=== PATIENT | female | born 1965 | race Caucasian/White ===

== ENCOUNTER 2022-05-08 23:43 | Inpatient (IN) | payer MEDICARE ==
[~2022-05-08] VITALS: Ht 157.5 cm; Wt 124.7 kg
[2022-05-09] VITALS (17 sets, daily range): BP systolic 92–124; BP diastolic 58–86
[2022-05-09 00:04] LABS: HEMATOCRIT 35.5 % (34.2-44.1); HEMOGLOBIN 10.9 g/dL (12.0-16.0); LYMPHOCYTES % 9.8 % (18.0-39.1); MEAN CORPUSCULAR HEMOGLOBIN 27.2 pg (28-32); MEAN CORPUSCULAR HGB CONC 30.7 g/dL (31-35); MEAN CORPUSCULAR VOLUME 88.5 fL (81-99); MONOCYTES % 6.8 % (4.4-11.3); NEUTROPHILS % 81.1 % (38.7-80.0); PLATELET COUNT 398 x10e3/uL (140-360); RED BLOOD COUNT 4.01 x10e6/uL (3.6-5.1); RED CELL DISTRIBUTION WIDTH 20.4 % (11.7-14.4)
[2022-05-09 00:05] LABS: BASOPHILS # (AUTO) 0.1 (0.0-0.1); BASOPHILS % 0.6 % (0.0-1.0); EOSINOPHILS # (AUTO) 0.2 (0.0-0.4); EOSINOPHILS % 1.3 % (0.0-6.0); LYMPHOCYTES # (AUTO) 1.4 (1.0-3.2); NEUTROPHILS # (AUTO) 11.5 (2.1-6.9)
[2022-05-09 00:23] LABS: INFLUENZAE A&B ANTIGEN (RAPID) NEGATIVE (NEGATIVE)
[2022-05-09 00:24] LABS: ALBUMIN/GLOBULIN RATIO 0.4 (0.8-2.0); ANION GAP 17.2 mmol/L (8-16); CALCIUM 8.9 mg/dL (8.4-10.2); CREATININE, SERUM 1.62 mg/dL (0.57-1.11); POTASSIUM 4.2 mmol/L (3.5-5.1); RESPIRATORY SYNC. VIRUS NEGATIVE (NEGATIVE)
[2022-05-09 00:32] LABS: CREATINE KINASE MB 2.8 ng/mL (0-5.0)
[2022-05-09] MEDS ORDERED: SODIUM CHLORIDE 0.9% 500ML 500 ML IV STA (01:24)
[2022-05-09] MEDS ORDERED: IOPAMIDOL 370 MG/ML 100 ML INFUS..BTL INJ ONE (01:35)
[2022-05-09] MEDS ORDERED: HEPARIN SOD (PORCINE) 5,000 UNIT/ML VIAL IV ONE (02:00)
[2022-05-09 02:01] LABS: INR 1.04; PROTHROMBIN TIME 14.5 seconds (11.9-14.5)
[2022-05-09 02:02] LABS: PARTIAL THROMBOPLASTIN TIME 25.7 seconds (23.8-35.5)
[2022-05-09] MEDS ORDERED: HEPARIN 25,000 UNIT DRIP IV ONE (02:44)
[2022-05-09] MEDS: HEPARIN 25,000 UNIT 1,400 UNIT in DEXTROSE 5% 250ML 250 ML IV SCH ×2 (02:49→19:48)
[2022-05-09] MEDS: ONDANSETRON HCL INJ 2MG/ML 2ML 2 MG/ML VIAL IV PRN (04:56)
[2022-05-09] MEDS: Morphine 4mg INJECTION 4 MG/ML INJ IV PRN (04:57)
[2022-05-09] MEDS ORDERED: METOPROLOL SUCC25 MG PO (05:35)
[2022-05-09] MEDS ORDERED: PANTOPRAZOLE SO40 MG PO (05:35)
[2022-05-09] MEDS ORDERED: HYDROXYZINE HCL10 MG PO (05:35)
[2022-05-09] MEDS ORDERED: LORATADINE10 MG PO (05:35)
[2022-05-09] MEDS ORDERED: SENOKOT-S TABL1 EACH PO (05:35)
[2022-05-09] MEDS ORDERED: QUETIAPINE FUMA25 MG PO (05:35)
[2022-05-09] MEDS ORDERED: AMLODIPINE BESY10 MG PO (05:35)
[2022-05-09] MEDS ORDERED: VITAMIN C500 MG PO (05:35)
[2022-05-09] MEDS ORDERED: FLUOXETINE HCL20 MG PO (05:35)
[2022-05-09] MEDS ORDERED: CRESTOR5 MG PO (05:35)
[2022-05-09] MEDS ORDERED: FUROSEMIDE40 MG PO (05:35)
[2022-05-09] MEDS ORDERED: MONTELUKAST SOD10 MG PO (05:35)
[2022-05-09] MEDS ORDERED: FEROSUL325 MG PO (05:35)
[2022-05-09] MEDS ORDERED: ELIQUIS5 MG PO (06:13)
[2022-05-09] MEDS ORDERED: PANTOPRAZOLE SOD 40 MG TABEC PO PRN (09:00)
[2022-05-09 09:40] LABS: CREATINE KINASE MB 3.5 ng/mL (0-5.0)
[2022-05-09] MEDS ORDERED: BENZONATATE 100 MG CAP PO PRN (11:30)
[2022-05-09] MEDS ORDERED: LIDOCAINE 4% PATCH TP PRN (11:30)
[2022-05-09] MEDS ORDERED: DIPHENHYDRAMINE HCL 25 MG CAP PO PRN (11:30)
[2022-05-09] MEDS ORDERED: SIMETHICONE 80 MG CHEW PO PRN (11:30)
[2022-05-09] MEDS ORDERED: DEXTROSE 50% SYRINGE 50 ML IV PRN (11:30)
[2022-05-09] MEDS ORDERED: POTASSIUM CHLORIDE 20 MEQ TAB CR PO PRN (11:30)
[2022-05-09] MEDS ORDERED: DOCUSATE SODIUM 100 MG CAP PO PRN (11:30)
[2022-05-09] MEDS ORDERED: MELATONIN 5 MG TABLET PO PRN (11:30)
[2022-05-09] MEDS ORDERED: HYDRALAZINE HCL 20 MG/ML VIAL IV PRN (11:30)
[2022-05-09] MEDS ORDERED: SODIUM CHLORIDE 0.9% 250ML 250 ML ONE (14:17)
[2022-05-09] MEDS: SENNA-S TABLET PO SCH (14:19)
[2022-05-09] MEDS: MONTELUKAST SODIUM 10 MG TAB PO SCH (14:19)
[2022-05-09] MEDS: ASCORBIC ACID 500 MG TAB PO SCH ×2 (14:19→17:00)
[2022-05-09] MEDS: ALBUTEROL/IPRATROPIUM 3 ML NEB NEB PRN (14:30)
[2022-05-09] MEDS ORDERED: FUROSEMIDE INJ 100 MG in SODIUM CHLORIDE 0.9% 90 ML IV SCH (16:00)
[2022-05-09] MEDS: METOPROLOL SUCCINATE 25 MG TAB XL PO SCH (16:00)
[2022-05-09 17:15] LABS: CREATINE KINASE MB 3.1 ng/mL (0-5.0)
[2022-05-09 18:27] LABS: CLARITY,URINE CLOUDY (CLEAR); COLOR,URINE YELLOW (YELLOW); LEUKOCYTE ESTERASE ,URINE SMALL (NEGATIVE); NITRITE,URINE NEGATIVE (NEGATIVE); PROTEIN,URINE DIPSTICK 2+ (NEGATIVE)
[2022-05-09 18:28] LABS: KETONES,URINE NEGATIVE (NEGATIVE); URINE UROBILINOGEN 0.2 mg/dL (0.2 - 1)
[2022-05-09 18:46] LABS: BACTERIA,URINE MANY /HPF
[2022-05-09 18:52] LABS: CREATININE,URINE RANDOM 91.44 mg/dL (47-110); TOTAL PROTEIN, URINE 134.8 mg/dL (1-14)
[2022-05-09] MEDS ORDERED: SIMVASTATIN 20 MG TAB PO SCH (21:00)
[2022-05-09] MEDS: FUROSEMIDE INJ 100 MG in SODIUM CHLORIDE 0.9% 90 ML IV SCH (22:10)
[2022-05-09] MEDS: CRESTOR 10MG PO SCH (22:11)
[2022-05-09] MEDS: QUETIAPINE FUMARATE 25 MG TAB PO SCH (22:11)
[2022-05-10] VITALS (43 sets, daily range): BP systolic 88–121; BP diastolic 52–77
[2022-05-10] MEDS: FUROSEMIDE INJ 100 MG in SODIUM CHLORIDE 0.9% 90 ML IV SCH ×3 (04:57→21:20)
[2022-05-10 04:58] LABS: BASOPHILS # (AUTO) 0.1 (0.0-0.1); BASOPHILS % 1.1 % (0.0-1.0); EOSINOPHILS # (AUTO) 0.6 (0.0-0.4); EOSINOPHILS % 8.3 % (0.0-6.0); HEMOGLOBIN 9.5 g/dL (12.0-16.0); LYMPHOCYTES # (AUTO) 1.2 (1.0-3.2); LYMPHOCYTES % 16.3 % (18.0-39.1); MEAN CORPUSCULAR HEMOGLOBIN 27.1 pg (28-32); MEAN CORPUSCULAR HGB CONC 29.7 g/dL (31-35); MEAN CORPUSCULAR VOLUME 91.2 fL (81-99); MONOCYTES # (AUTO) 0.6 (0.2-0.8); NEUTROPHILS # (AUTO) 4.9 (2.1-6.9); PLATELET COUNT 293 x10e3/uL (140-360); RED BLOOD COUNT 3.51 x10e6/uL (3.6-5.1); RED CELL DISTRIBUTION WIDTH 20.1 % (11.7-14.4)
[2022-05-10 05:41] LABS: ALBUMIN 1.8 g/dL (3.5-5.0); ALBUMIN/GLOBULIN RATIO 0.5 (0.8-2.0); ALKALINE PHOSPHATASE 70 IU/L (40-150); ANION GAP 16.7 mmol/L (8-16); BLOOD UREA NITROGEN 23 mg/dL (7-26); BUN/CREATININE RATIO 14 (6-25); CALCIUM 8.4 mg/dL (8.4-10.2); CARBON DIOXIDE 19 mmol/L (22-29); CHLORIDE 110 mmol/L (98-107); CREATININE, SERUM 1.66 mg/dL (0.57-1.11); GLUCOSE 88 mg/dL (74-118); POTASSIUM 3.7 mmol/L (3.5-5.1); SODIUM 142 mmol/L (136-145)
[2022-05-10 05:44] LABS: ALANINE AMINOTRANSFERASE < 6 IU/L (0-55)
[2022-05-10 06:01] LABS: FERRITIN 54.87 ng/mL (4.63-204.00)
[2022-05-10] MEDS: PANTOPRAZOLE SOD 40 MG TABEC PO SCH (07:17)
[2022-05-10] MEDS: ACETAMINOPHEN 325 MG TAB PO PRN ×2 (07:20→16:02)
[2022-05-10] MEDS: ALBUTEROL/IPRATROPIUM 3 ML NEB NEB PRN ×2 (08:00→20:10)
[2022-05-10] MEDS: SENNA-S TABLET PO SCH (08:15)
[2022-05-10] MEDS: ASCORBIC ACID 500 MG TAB PO SCH ×2 (08:16→15:52)
[2022-05-10] MEDS: METOPROLOL SUCCINATE 25 MG TAB XL PO SCH (08:16)
[2022-05-10] MEDS: FERROUS SULFATE 325 MG TAB PO SCH (08:16)
[2022-05-10] MEDS: FLUOXETINE HCL 20 MG CAP PO SCH (08:17)
[2022-05-10] MEDS: MONTELUKAST SODIUM 10 MG TAB PO SCH (08:17)
[2022-05-10] MEDS: AMLODIPINE BESYLATE 10 MG TAB PO SCH (08:17)
[2022-05-10] MEDS: LORATADINE 10 MG TAB PO SCH (08:17)
[2022-05-10] MEDS ORDERED: FUROSEMIDE 40 MG TAB PO SCH (09:00)
[2022-05-10] MEDS ORDERED: LIDOCAINE HCL 1% LOCAL INJ 20 ML VIAL ONE (13:48)
[2022-05-10] MEDS: ALLOPURINOL 100 MG TAB PO SCH (15:52)
[2022-05-10] MEDS: HEPARIN 25,000 UNIT 1,400 UNIT in DEXTROSE 5% 250ML 250 ML IV SCH (15:56)
[2022-05-10] MEDS: QUETIAPINE FUMARATE 25 MG TAB PO SCH (20:22)
[2022-05-10] MEDS: CRESTOR 10MG PO SCH (20:22)
[2022-05-11] VITALS (13 sets, daily range): BP systolic 84–111; BP diastolic 50–74
[2022-05-11] MEDS: ACETAMINOPHEN 325 MG TAB PO PRN ×2 (02:23→11:44)
[2022-05-11 05:11] LABS: MAGNESIUM 1.7 MG/DL (1.3-2.1); PHOSPHORUS 3.5 MG/DL (2.3-4.7)
[2022-05-11] MEDS: HEPARIN 25,000 UNIT 1,400 UNIT in DEXTROSE 5% 250ML 250 ML IV SCH ×2 (05:29→15:07)
[2022-05-11] MEDS: FUROSEMIDE INJ 100 MG in SODIUM CHLORIDE 0.9% 90 ML IV SCH (07:30)
[2022-05-11] MEDS: MONTELUKAST SODIUM 10 MG TAB PO SCH (08:13)
[2022-05-11] MEDS: PANTOPRAZOLE SOD 40 MG TABEC PO SCH (08:13)
[2022-05-11] MEDS: ASCORBIC ACID 500 MG TAB PO SCH ×2 (08:13→16:36)
[2022-05-11] MEDS: FOLIC ACID 1 MG TAB PO SCH (08:13)
[2022-05-11] MEDS: FLUOXETINE HCL 20 MG CAP PO SCH (08:13)
[2022-05-11] MEDS: SENNA-S TABLET PO SCH (08:14)
[2022-05-11] MEDS: FERROUS SULFATE 325 MG TAB PO SCH (08:14)
[2022-05-11] MEDS: LORATADINE 10 MG TAB PO SCH (08:14)
[2022-05-11] MEDS: AMLODIPINE BESYLATE 10 MG TAB PO SCH (08:15)
[2022-05-11] MEDS: METOPROLOL SUCCINATE 25 MG TAB XL PO SCH (08:16)
[2022-05-11] MEDS: ALLOPURINOL 100 MG TAB PO SCH (08:16)
[2022-05-11] MEDS: ALBUTEROL/IPRATROPIUM 3 ML NEB NEB PRN ×2 (13:43→19:25)
[2022-05-11] MEDS: HYDROCODONE/APAP 5MG-325MG TAB PO PRN (19:25)
[2022-05-11] MEDS: QUETIAPINE FUMARATE 25 MG TAB PO SCH (21:16)
[2022-05-11] MEDS: CRESTOR 10MG PO SCH (21:16)
[2022-05-12] VITALS (20 sets, daily range): BP systolic 85–116; BP diastolic 54–72
[2022-05-12] MEDS: HYDROCODONE/APAP 5MG-325MG TAB PO PRN ×3 (04:50→22:03)
[2022-05-12 06:48] LABS: BASOPHILS # (AUTO) 0.1 (0.0-0.1); BASOPHILS % 0.8 % (0.0-1.0); EOSINOPHILS # (AUTO) 0.5 (0.0-0.4); EOSINOPHILS % 7.5 % (0.0-6.0); HEMATOCRIT 30.2 % (34.2-44.1); HEMOGLOBIN 9.1 g/dL (12.0-16.0); LYMPHOCYTES # (AUTO) 1.1 (1.0-3.2); LYMPHOCYTES % 14.8 % (18.0-39.1); MEAN CORPUSCULAR HEMOGLOBIN 26.8 pg (28-32); MEAN CORPUSCULAR HGB CONC 30.1 g/dL (31-35); MEAN CORPUSCULAR VOLUME 89.1 fL (81-99); MONOCYTES # (AUTO) 0.5 (0.2-0.8); MONOCYTES % 6.5 % (4.4-11.3); NEUTROPHILS # (AUTO) 5.1 (2.1-6.9); NEUTROPHILS % 70.1 % (38.7-80.0); PLATELET COUNT 298 x10e3/uL (140-360); RED BLOOD COUNT 3.39 x10e6/uL (3.6-5.1); RED CELL DISTRIBUTION WIDTH 19.4 % (11.7-14.4)
[2022-05-12 07:15] LABS: ALBUMIN 1.6 g/dL (3.5-5.0); ALBUMIN/GLOBULIN RATIO 0.4 (0.8-2.0); ALKALINE PHOSPHATASE 67 IU/L (40-150); ANION GAP 17.1 mmol/L (8-16); BLOOD UREA NITROGEN 22 mg/dL (7-26); BUN/CREATININE RATIO 14 (6-25); CARBON DIOXIDE 21 mmol/L (22-29); CHLORIDE 107 mmol/L (98-107); CREATININE, SERUM 1.56 mg/dL (0.57-1.11); GLUCOSE 78 mg/dL (74-118); POTASSIUM 3.1 mmol/L (3.5-5.1); SODIUM 142 mmol/L (136-145)
[2022-05-12 07:16] LABS: ALANINE AMINOTRANSFERASE < 6 IU/L (0-55)
[2022-05-12] MEDS: PANTOPRAZOLE SOD 40 MG TABEC PO SCH (08:35)
[2022-05-12] MEDS: FLUOXETINE HCL 20 MG CAP PO SCH (08:35)
[2022-05-12] MEDS: FERROUS SULFATE 325 MG TAB PO SCH (08:35)
[2022-05-12] MEDS: LORATADINE 10 MG TAB PO SCH (08:36)
[2022-05-12] MEDS: ALLOPURINOL 100 MG TAB PO SCH (08:36)
[2022-05-12] MEDS: SENNA-S TABLET PO SCH (08:36)
[2022-05-12] MEDS: FUROSEMIDE 40 MG TAB PO SCH (08:36)
[2022-05-12] MEDS: AMLODIPINE BESYLATE 10 MG TAB PO SCH (08:36)
[2022-05-12] MEDS: FOLIC ACID 1 MG TAB PO SCH (08:36)
[2022-05-12] MEDS: MONTELUKAST SODIUM 10 MG TAB PO SCH (08:37)
[2022-05-12] MEDS: ASCORBIC ACID 500 MG TAB PO SCH ×2 (08:37→16:19)
[2022-05-12] MEDS: METOPROLOL SUCCINATE 25 MG TAB XL PO SCH (08:38)
[2022-05-12] MEDS ORDERED: POTASSIUM CHLORIDE 20 MEQ TAB CR PO STA (10:18)
[2022-05-12] MEDS ORDERED: POTASSIUM CHLORIDE 20 MEQ TAB CR PO ONE (10:20)
[2022-05-12] MEDS: ALBUTEROL/IPRATROPIUM 3 ML NEB NEB PRN ×2 (12:00→23:00)
[2022-05-12] MEDS: QUETIAPINE FUMARATE 25 MG TAB PO SCH (21:55)
[2022-05-12] MEDS: CRESTOR 10MG PO SCH (21:55)
[2022-05-12] MEDS: ACETAMINOPHEN 325 MG TAB PO PRN (21:56)
[2022-05-12] MEDS: Morphine 4mg INJECTION 4 MG/ML INJ IV PRN (23:05)
[2022-05-12] MEDS: ONDANSETRON HCL INJ 2MG/ML 2ML 2 MG/ML VIAL IV PRN (23:05)
[2022-05-13] VITALS (15 sets, daily range): BP systolic 92–112; BP diastolic 52–74
[2022-05-13] MEDS: HEPARIN 25,000 UNIT 1,400 UNIT in DEXTROSE 5% 250ML 250 ML IV SCH ×2 (02:00→09:26)
[2022-05-13 06:43] LABS: BASOPHILS # (AUTO) 0.1 (0.0-0.1); BASOPHILS % 0.9 % (0.0-1.0); EOSINOPHILS # (AUTO) 0.8 (0.0-0.4); EOSINOPHILS % 9.7 % (0.0-6.0); HEMATOCRIT 32.2 % (34.2-44.1); HEMOGLOBIN 9.7 g/dL (12.0-16.0); LYMPHOCYTES # (AUTO) 1.7 (1.0-3.2); LYMPHOCYTES % 21.2 % (18.0-39.1); MEAN CORPUSCULAR HEMOGLOBIN 26.9 pg (28-32); MEAN CORPUSCULAR HGB CONC 30.1 g/dL (31-35); MEAN CORPUSCULAR VOLUME 89.4 fL (81-99); MONOCYTES # (AUTO) 0.6 (0.2-0.8); MONOCYTES % 8.1 % (4.4-11.3); NEUTROPHILS # (AUTO) 4.8 (2.1-6.9); NEUTROPHILS % 59.7 % (38.7-80.0); PLATELET COUNT 341 x10e3/uL (140-360); RED CELL DISTRIBUTION WIDTH 19.3 % (11.7-14.4)
[2022-05-13 07:15] LABS: ALBUMIN 1.7 g/dL (3.5-5.0); ALBUMIN/GLOBULIN RATIO 0.4 (0.8-2.0); ALKALINE PHOSPHATASE 74 IU/L (40-150); ANION GAP 19.9 mmol/L (8-16); BLOOD UREA NITROGEN 20 mg/dL (7-26); BUN/CREATININE RATIO 14 (6-25); CALCIUM 8.1 mg/dL (8.4-10.2); CARBON DIOXIDE 20 mmol/L (22-29); CHLORIDE 107 mmol/L (98-107); CREATININE, SERUM 1.38 mg/dL (0.57-1.11); GLUCOSE 74 mg/dL (74-118); POTASSIUM 3.9 mmol/L (3.5-5.1); SODIUM 143 mmol/L (136-145)
[2022-05-13 07:16] LABS: ALANINE AMINOTRANSFERASE < 6 IU/L (0-55)
[2022-05-13] MEDS: ASCORBIC ACID 500 MG TAB PO SCH ×2 (08:25→16:03)
[2022-05-13] MEDS: LORATADINE 10 MG TAB PO SCH (08:26)
[2022-05-13] MEDS: PANTOPRAZOLE SOD 40 MG TABEC PO SCH (08:26)
[2022-05-13] MEDS: FLUOXETINE HCL 20 MG CAP PO SCH (08:26)
[2022-05-13] MEDS: FERROUS SULFATE 325 MG TAB PO SCH (08:26)
[2022-05-13] MEDS: FOLIC ACID 1 MG TAB PO SCH (08:26)
[2022-05-13] MEDS: MONTELUKAST SODIUM 10 MG TAB PO SCH (08:26)
[2022-05-13] MEDS: SENNA-S TABLET PO SCH (08:27)
[2022-05-13] MEDS: FUROSEMIDE 40 MG TAB PO SCH (08:27)
[2022-05-13] MEDS: ALLOPURINOL 100 MG TAB PO SCH (08:27)
[2022-05-13] MEDS: METOPROLOL SUCCINATE 25 MG TAB XL PO SCH (08:28)
[2022-05-13] MEDS ORDERED: HEPARIN 25,000 UNIT DRIP IV ONE (09:12)
[2022-05-13] MEDS ORDERED: MAGNESIUM SULF 1GRAM/DEXTROSE 100 ML IV ONE (09:45)
[2022-05-13] MEDS: HYDROCODONE/APAP 5MG-325MG TAB PO PRN ×2 (10:07→16:03)
[2022-05-13] MEDS: ALBUTEROL/IPRATROPIUM 3 ML NEB NEB PRN (18:45)
[2022-05-13] MEDS: QUETIAPINE FUMARATE 25 MG TAB PO SCH (21:36)
[2022-05-13] MEDS: CRESTOR 10MG PO SCH (21:37)
[2022-05-14] VITALS (18 sets, daily range): BP systolic 86–130; BP diastolic 53–92
[2022-05-14 06:28] LABS: BASOPHILS # (AUTO) 0.1 (0.0-0.1); BASOPHILS % 0.7 % (0.0-1.0); EOSINOPHILS # (AUTO) 0.6 (0.0-0.4); EOSINOPHILS % 8.1 % (0.0-6.0); HEMATOCRIT 29.4 % (34.2-44.1); HEMOGLOBIN 9.2 g/dL (12.0-16.0); LYMPHOCYTES # (AUTO) 1.1 (1.0-3.2); LYMPHOCYTES % 14.7 % (18.0-39.1); MEAN CORPUSCULAR HEMOGLOBIN 27.3 pg (28-32); MEAN CORPUSCULAR HGB CONC 31.3 g/dL (31-35); MEAN CORPUSCULAR VOLUME 87.2 fL (81-99); MONOCYTES # (AUTO) 0.5 (0.2-0.8); MONOCYTES % 7.2 % (4.4-11.3); NEUTROPHILS # (AUTO) 4.9 (2.1-6.9); NEUTROPHILS % 68.7 % (38.7-80.0); PLATELET COUNT 313 x10e3/uL (140-360); RED BLOOD COUNT 3.37 x10e6/uL (3.6-5.1); RED CELL DISTRIBUTION WIDTH 19.2 % (11.7-14.4)
[2022-05-14 06:51] LABS: ANION GAP 14.6 mmol/L (8-16); CALCIUM 8.1 mg/dL (8.4-10.2); CREATININE, SERUM 1.29 mg/dL (0.57-1.11); PHOSPHORUS 2.3 MG/DL (2.3-4.7); POTASSIUM 3.6 mmol/L (3.5-5.1)
[2022-05-14] MEDS: SENNA-S TABLET PO SCH ×2 (09:00→19:59)
[2022-05-14] MEDS: FLUOXETINE HCL 20 MG CAP PO SCH (10:22)
[2022-05-14] MEDS: FUROSEMIDE 40 MG TAB PO SCH ×2 (10:23→16:49)
[2022-05-14] MEDS: METOPROLOL SUCCINATE 25 MG TAB XL PO SCH (10:27)
[2022-05-14] MEDS: ALLOPURINOL 100 MG TAB PO SCH (10:28)
[2022-05-14] MEDS: ASCORBIC ACID 500 MG TAB PO SCH ×2 (10:28→16:49)
[2022-05-14] MEDS: MONTELUKAST SODIUM 10 MG TAB PO SCH (10:28)
[2022-05-14] MEDS: FERROUS SULFATE 325 MG TAB PO SCH (10:28)
[2022-05-14] MEDS: LORATADINE 10 MG TAB PO SCH (10:28)
[2022-05-14] MEDS: HYDROCODONE/APAP 5MG-325MG TAB PO PRN ×2 (10:28→20:04)
[2022-05-14] MEDS: FOLIC ACID 1 MG TAB PO SCH (10:28)
[2022-05-14] MEDS: PANTOPRAZOLE SOD 40 MG TABEC PO SCH (10:29)
[2022-05-14] MEDS: HEPARIN 25,000 UNIT 1,400 UNIT in DEXTROSE 5% 250ML 250 ML IV SCH (12:41)
[2022-05-14] MEDS: QUETIAPINE FUMARATE 25 MG TAB PO SCH (19:58)
[2022-05-14] MEDS: CRESTOR 10MG PO SCH (19:58)
[2022-05-14] MEDS: ALBUTEROL/IPRATROPIUM 3 ML NEB NEB PRN (21:28)
[2022-05-14] MEDS: HYDROXYZINE HCL 25 MG TAB PO PRN (22:49)
[2022-05-15] VITALS (12 sets, daily range): BP systolic 94–134; BP diastolic 54–74
[2022-05-15] MEDS: HEPARIN 25,000 UNIT 1,400 UNIT in DEXTROSE 5% 250ML 250 ML IV SCH ×2 (03:56→19:04)
[2022-05-15] MEDS ORDERED: HEPARIN 25,000 UNIT DRIP IV ONE (04:04)
[2022-05-15 06:42] LABS: ALBUMIN 1.6 g/dL (3.5-5.0); ALBUMIN/GLOBULIN RATIO 0.4 (0.8-2.0); ALKALINE PHOSPHATASE 80 IU/L (40-150); ANION GAP 13.6 mmol/L (8-16); BLOOD UREA NITROGEN 18 mg/dL (7-26); BUN/CREATININE RATIO 15 (6-25); CALCIUM 7.9 mg/dL (8.4-10.2); CARBON DIOXIDE 23 mmol/L (22-29); CHLORIDE 108 mmol/L (98-107); CREATININE, SERUM 1.24 mg/dL (0.57-1.11); GLUCOSE 76 mg/dL (74-118); POTASSIUM 3.6 mmol/L (3.5-5.1); SODIUM 141 mmol/L (136-145)
[2022-05-15 06:46] LABS: ALANINE AMINOTRANSFERASE < 6 IU/L (0-55)
[2022-05-15 08:39] LABS: BASOPHILS % 0.5 % (0.0-1.0); EOSINOPHILS # (AUTO) 0.7 (0.0-0.4); EOSINOPHILS % 8.9 % (0.0-6.0); HEMATOCRIT 30.2 % (34.2-44.1); HEMOGLOBIN 8.9 g/dL (12.0-16.0); LYMPHOCYTES # (AUTO) 1.3 (1.0-3.2); LYMPHOCYTES % 17.6 % (18.0-39.1); MEAN CORPUSCULAR HEMOGLOBIN 26.6 pg (28-32); MEAN CORPUSCULAR HGB CONC 29.5 g/dL (31-35); MEAN CORPUSCULAR VOLUME 90.4 fL (81-99); MONOCYTES # (AUTO) 0.5 (0.2-0.8); MONOCYTES % 6.9 % (4.4-11.3); NEUTROPHILS # (AUTO) 4.9 (2.1-6.9); NEUTROPHILS % 65.8 % (38.7-80.0); PLATELET COUNT 358 x10e3/uL (140-360); RED BLOOD COUNT 3.34 x10e6/uL (3.6-5.1); RED CELL DISTRIBUTION WIDTH 18.8 % (11.7-14.4)
[2022-05-15] MEDS: PANTOPRAZOLE SOD 40 MG TABEC PO SCH (10:39)
[2022-05-15] MEDS: HYDROCODONE/APAP 5MG-325MG TAB PO PRN ×2 (10:39→16:46)
[2022-05-15] MEDS: FOLIC ACID 1 MG TAB PO SCH (10:40)
[2022-05-15] MEDS: FLUOXETINE HCL 20 MG CAP PO SCH (10:40)
[2022-05-15] MEDS: FERROUS SULFATE 325 MG TAB PO SCH (10:40)
[2022-05-15] MEDS: ALLOPURINOL 100 MG TAB PO SCH (10:40)
[2022-05-15] MEDS: FUROSEMIDE 40 MG TAB PO SCH ×3 (10:40→23:18)
[2022-05-15] MEDS: LORATADINE 10 MG TAB PO SCH (10:40)
[2022-05-15] MEDS: ASCORBIC ACID 500 MG TAB PO SCH ×2 (10:40→16:46)
[2022-05-15] MEDS: METOPROLOL SUCCINATE 25 MG TAB XL PO SCH (10:43)
[2022-05-15] MEDS ORDERED: HYDROMORPHONE 1MG/1ML INJ IV ONE (13:15)
[2022-05-15] MEDS ORDERED: EPOETIN ALFA-EPBX 10,000 UNIT/ML VIAL SC ONE (14:00)
[2022-05-15] MEDS: ALBUTEROL/IPRATROPIUM 3 ML NEB NEB PRN (19:35)
[2022-05-15] MEDS: MONTELUKAST SODIUM 10 MG TAB PO SCH (20:14)
[2022-05-15] MEDS: CRESTOR 10MG PO SCH (20:14)
[2022-05-15] MEDS: QUETIAPINE FUMARATE 25 MG TAB PO SCH (20:14)
[2022-05-15] MEDS: SENNA-S TABLET PO SCH (21:00)
[2022-05-16] VITALS (12 sets, daily range): BP systolic 105–135; BP diastolic 58–76
[2022-05-16] MEDS: FUROSEMIDE 40 MG TAB PO SCH ×3 (06:00→22:50)
[2022-05-16 06:21] LABS: BASOPHILS # (AUTO) 0.1 (0.0-0.1); BASOPHILS % 0.9 % (0.0-1.0); EOSINOPHILS # (AUTO) 0.6 (0.0-0.4); EOSINOPHILS % 8.3 % (0.0-6.0); HEMATOCRIT 30.3 % (34.2-44.1); HEMOGLOBIN 8.9 g/dL (12.0-16.0); LYMPHOCYTES % 14.7 % (18.0-39.1); MEAN CORPUSCULAR HEMOGLOBIN 26.4 pg (28-32); MEAN CORPUSCULAR HGB CONC 29.4 g/dL (31-35); MEAN CORPUSCULAR VOLUME 89.9 fL (81-99); MONOCYTES # (AUTO) 0.5 (0.2-0.8); MONOCYTES % 7.1 % (4.4-11.3); NEUTROPHILS # (AUTO) 4.8 (2.1-6.9); NEUTROPHILS % 68.7 % (38.7-80.0); PLATELET COUNT 340 x10e3/uL (140-360); RED BLOOD COUNT 3.37 x10e6/uL (3.6-5.1)
[2022-05-16 06:53] LABS: CALCIUM 7.9 mg/dL (8.4-10.2); CREATININE, SERUM 1.15 mg/dL (0.57-1.11)
[2022-05-16] MEDS: METOPROLOL SUCCINATE 25 MG TAB XL PO SCH (08:53)
[2022-05-16] MEDS: FLUOXETINE HCL 20 MG CAP PO SCH (08:54)
[2022-05-16] MEDS: LORATADINE 10 MG TAB PO SCH (08:54)
[2022-05-16] MEDS: FERROUS SULFATE 325 MG TAB PO SCH (08:54)
[2022-05-16] MEDS: FOLIC ACID 1 MG TAB PO SCH (08:54)
[2022-05-16] MEDS: PANTOPRAZOLE SOD 40 MG TABEC PO SCH (08:54)
[2022-05-16] MEDS: ALLOPURINOL 100 MG TAB PO SCH (08:54)
[2022-05-16] MEDS: ASCORBIC ACID 500 MG TAB PO SCH ×2 (09:09→16:31)
[2022-05-16] MEDS: HYDROCODONE/APAP 5MG-325MG TAB PO PRN ×2 (09:10→21:04)
[2022-05-16] MEDS ORDERED: HEPARIN 25,000 UNIT 1,400 UNIT in DEXTROSE 5% 250ML 250 ML IV SCH ×4 (09:15)
[2022-05-16] MEDS ORDERED: HYDROMORPHONE 1MG/1ML INJ IV ONE (10:15)
[2022-05-16] MEDS: APIXABAN 5 MG TABLET PO SCH (16:31)
[2022-05-16] MEDS: ALBUTEROL/IPRATROPIUM 3 ML NEB NEB PRN (19:30)
[2022-05-16] MEDS: SENNA-S TABLET PO SCH (21:00)
[2022-05-16] MEDS: CRESTOR 10MG PO SCH (21:04)
[2022-05-16] MEDS: MONTELUKAST SODIUM 10 MG TAB PO SCH (21:04)
[2022-05-16] MEDS: QUETIAPINE FUMARATE 25 MG TAB PO SCH (21:04)
[2022-05-16] MEDS ORDERED: SODIUM CHLORIDE 0.9% 250ML 250 ML ONE (23:00)
[2022-05-17] VITALS (12 sets, daily range): BP systolic 106–134; BP diastolic 65–80
[2022-05-17] MEDS: FUROSEMIDE 40 MG TAB PO SCH ×3 (05:48→21:02)
[2022-05-17] MEDS: HYDROCODONE/APAP 5MG-325MG TAB PO PRN ×2 (05:49→19:51)
[2022-05-17] MEDS: LORATADINE 10 MG TAB PO SCH (08:33)
[2022-05-17] MEDS: PANTOPRAZOLE SOD 40 MG TABEC PO SCH (08:33)
[2022-05-17] MEDS: FERROUS SULFATE 325 MG TAB PO SCH (08:34)
[2022-05-17] MEDS: FOLIC ACID 1 MG TAB PO SCH (08:34)
[2022-05-17] MEDS: APIXABAN 5 MG TABLET PO SCH ×2 (08:34→15:22)
[2022-05-17] MEDS: ALLOPURINOL 100 MG TAB PO SCH (08:34)
[2022-05-17] MEDS: ASCORBIC ACID 500 MG TAB PO SCH ×2 (08:34→15:21)
[2022-05-17] MEDS: FLUOXETINE HCL 20 MG CAP PO SCH (08:34)
[2022-05-17] MEDS: METOPROLOL SUCCINATE 25 MG TAB XL PO SCH (08:41)
[2022-05-17] MEDS ORDERED: ONDANSETRON HCL 4 MG ORAL DISINTEGRATING TAB PO PRN (10:15)
[2022-05-17 11:06] LABS: HEMATOCRIT 33.1 % (34.2-44.1); HEMOGLOBIN 9.7 g/dL (12.0-16.0)
[2022-05-17] MEDS: SENNA-S TABLET PO SCH (21:00)
[2022-05-17] MEDS: QUETIAPINE FUMARATE 25 MG TAB PO SCH (21:01)
[2022-05-17] MEDS: CRESTOR 10MG PO SCH (21:01)
[2022-05-17] MEDS: MONTELUKAST SODIUM 10 MG TAB PO SCH (21:01)
[2022-05-18] VITALS (7 sets, daily range): BP systolic 109–126; BP diastolic 64–78
[2022-05-18] MEDS: FUROSEMIDE 40 MG TAB PO SCH ×3 (05:54→20:50)
[2022-05-18 06:05] LABS: BASOPHILS # (AUTO) 0.1 (0.0-0.1); BASOPHILS % 1.1 % (0.0-1.0); EOSINOPHILS # (AUTO) 0.6 (0.0-0.4); EOSINOPHILS % 7.3 % (0.0-6.0); HEMOGLOBIN 9.5 g/dL (12.0-16.0); LYMPHOCYTES # (AUTO) 1.6 (1.0-3.2); LYMPHOCYTES % 18.3 % (18.0-39.1); MEAN CORPUSCULAR HEMOGLOBIN 26.5 pg (28-32); MEAN CORPUSCULAR HGB CONC 30.6 g/dL (31-35); MEAN CORPUSCULAR VOLUME 86.4 fL (81-99); MONOCYTES # (AUTO) 0.6 (0.2-0.8); MONOCYTES % 7.3 % (4.4-11.3); NEUTROPHILS # (AUTO) 5.6 (2.1-6.9); NEUTROPHILS % 65.5 % (38.7-80.0); PLATELET COUNT 429 x10e3/uL (140-360); RED BLOOD COUNT 3.59 x10e6/uL (3.6-5.1); RED CELL DISTRIBUTION WIDTH 18.9 % (11.7-14.4)
[2022-05-18] MEDS: PANTOPRAZOLE SOD 40 MG TABEC PO SCH (09:37)
[2022-05-18] MEDS: LORATADINE 10 MG TAB PO SCH (09:38)
[2022-05-18] MEDS: APIXABAN 5 MG TABLET PO SCH ×2 (09:39→17:07)
[2022-05-18] MEDS: FERROUS SULFATE 325 MG TAB PO SCH (09:39)
[2022-05-18] MEDS: FOLIC ACID 1 MG TAB PO SCH (09:40)
[2022-05-18] MEDS: FLUOXETINE HCL 20 MG CAP PO SCH (09:41)
[2022-05-18] MEDS: ASCORBIC ACID 500 MG TAB PO SCH ×2 (09:42→17:07)
[2022-05-18] MEDS: METOPROLOL SUCCINATE 25 MG TAB XL PO SCH (09:42)
[2022-05-18] MEDS: ALLOPURINOL 100 MG TAB PO SCH (09:42)
[2022-05-18] MEDS: HYDROCODONE/APAP 5MG-325MG TAB PO PRN (12:48)
[2022-05-18] MEDS: MONTELUKAST SODIUM 10 MG TAB PO SCH (20:50)
[2022-05-18] MEDS: SENNA-S TABLET PO SCH (20:50)
[2022-05-18] MEDS: QUETIAPINE FUMARATE 25 MG TAB PO SCH (20:50)
[2022-05-18] MEDS: CRESTOR 10MG PO SCH (20:50)
[2022-05-19] VITALS (9 sets, daily range): BP systolic 102–134; BP diastolic 63–73
[2022-05-19] MEDS: FUROSEMIDE 40 MG TAB PO SCH ×3 (06:00→22:37)
[2022-05-19 07:25] LABS: ANION GAP 14.7 mmol/L (8-16); CALCIUM 8.3 mg/dL (8.4-10.2); CREATININE, SERUM 1.5 mg/dL (0.57-1.11); POTASSIUM 3.7 mmol/L (3.5-5.1)
[2022-05-19] MEDS: ASCORBIC ACID 500 MG TAB PO SCH ×2 (09:11→17:34)
[2022-05-19] MEDS: FLUOXETINE HCL 20 MG CAP PO SCH (09:11)
[2022-05-19] MEDS: FERROUS SULFATE 325 MG TAB PO SCH (09:11)
[2022-05-19] MEDS: LORATADINE 10 MG TAB PO SCH (09:11)
[2022-05-19] MEDS: FOLIC ACID 1 MG TAB PO SCH (09:11)
[2022-05-19] MEDS: ALLOPURINOL 100 MG TAB PO SCH (09:11)
[2022-05-19] MEDS: APIXABAN 5 MG TABLET PO SCH ×2 (09:12→17:34)
[2022-05-19] MEDS: PANTOPRAZOLE SOD 40 MG TABEC PO SCH (09:12)
[2022-05-19] MEDS: METOPROLOL SUCCINATE 25 MG TAB XL PO SCH (09:13)
[2022-05-19] MEDS: HYDROCODONE/APAP 5MG-325MG TAB PO PRN ×2 (11:19→22:49)
[2022-05-19] MEDS ORDERED: OXYMETAZOLINE HCL 0.05% NAS 1 SPRAY BTL PRN (18:30)
[2022-05-19] MEDS: SENNA-S TABLET PO SCH (21:00)
[2022-05-19] MEDS: MONTELUKAST SODIUM 10 MG TAB PO SCH (22:36)
[2022-05-19] MEDS: QUETIAPINE FUMARATE 25 MG TAB PO SCH (22:36)
[2022-05-19] MEDS: CRESTOR 10MG PO SCH (22:36)
[2022-05-20] VITALS (8 sets, daily range): BP systolic 101–123; BP diastolic 61–76
[2022-05-20 06:35] LABS: HEMATOCRIT 30.7 % (34.2-44.1); HEMOGLOBIN 9.3 g/dL (12.0-16.0)
[2022-05-20 06:46] LABS: ANION GAP 14.5 mmol/L (8-16); CALCIUM 8.3 mg/dL (8.4-10.2); CREATININE, SERUM 1.59 mg/dL (0.57-1.11); POTASSIUM 3.5 mmol/L (3.5-5.1)
[2022-05-20] MEDS: FUROSEMIDE 40 MG TAB PO SCH ×3 (06:48→21:15)
[2022-05-20] MEDS: PANTOPRAZOLE SOD 40 MG TABEC PO SCH (09:15)
[2022-05-20] MEDS: ASCORBIC ACID 500 MG TAB PO SCH ×2 (09:16→17:03)
[2022-05-20] MEDS: FLUOXETINE HCL 20 MG CAP PO SCH (09:16)
[2022-05-20] MEDS: ALLOPURINOL 100 MG TAB PO SCH (09:16)
[2022-05-20] MEDS: FERROUS SULFATE 325 MG TAB PO SCH (09:16)
[2022-05-20] MEDS: APIXABAN 5 MG TABLET PO SCH ×2 (09:16→17:03)
[2022-05-20] MEDS: FOLIC ACID 1 MG TAB PO SCH (09:16)
[2022-05-20] MEDS: LORATADINE 10 MG TAB PO SCH (09:16)
[2022-05-20] MEDS: METOPROLOL SUCCINATE 25 MG TAB XL PO SCH (09:17)
[2022-05-20] MEDS: HYDROCODONE/APAP 5MG-325MG TAB PO PRN ×2 (09:53→21:21)
[2022-05-20] MEDS: SENNA-S TABLET PO SCH (21:15)
[2022-05-20] MEDS: QUETIAPINE FUMARATE 25 MG TAB PO SCH (21:15)
[2022-05-20] MEDS: MONTELUKAST SODIUM 10 MG TAB PO SCH (21:15)
[2022-05-20] MEDS: CRESTOR 10MG PO SCH (21:15)
[2022-05-21] VITALS (7 sets, daily range): BP systolic 96–127; BP diastolic 56–77
[2022-05-21] MEDS: FUROSEMIDE 40 MG TAB PO SCH ×3 (06:00→22:05)
[2022-05-21 06:18] LABS: HEMATOCRIT 32.3 % (34.2-44.1); HEMOGLOBIN 9.4 g/dL (12.0-16.0)
[2022-05-21 06:52] LABS: ANION GAP 14.7 mmol/L (8-16); CALCIUM 8.4 mg/dL (8.4-10.2); CREATININE, SERUM 1.48 mg/dL (0.57-1.11); POTASSIUM 3.7 mmol/L (3.5-5.1)
[2022-05-21] MEDS: ASCORBIC ACID 500 MG TAB PO SCH ×2 (08:31→17:00)
[2022-05-21] MEDS: LORATADINE 10 MG TAB PO SCH (08:31)
[2022-05-21] MEDS: FLUOXETINE HCL 20 MG CAP PO SCH (08:31)
[2022-05-21] MEDS: FERROUS SULFATE 325 MG TAB PO SCH (08:31)
[2022-05-21] MEDS: METOPROLOL SUCCINATE 25 MG TAB XL PO SCH (08:31)
[2022-05-21] MEDS: ALLOPURINOL 100 MG TAB PO SCH (08:31)
[2022-05-21] MEDS: PANTOPRAZOLE SOD 40 MG TABEC PO SCH (08:31)
[2022-05-21] MEDS: FOLIC ACID 1 MG TAB PO SCH (08:31)
[2022-05-21] MEDS: APIXABAN 5 MG TABLET PO SCH (08:31)
[2022-05-21] MEDS: HYDROCODONE/APAP 5MG-325MG TAB PO PRN ×2 (14:49→22:26)
[2022-05-21] MEDS: QUETIAPINE FUMARATE 25 MG TAB PO SCH (22:06)
[2022-05-21] MEDS: MONTELUKAST SODIUM 10 MG TAB PO SCH (22:06)
[2022-05-21] MEDS: SENNA-S TABLET PO SCH (22:29)
[2022-05-21] MEDS: CRESTOR 10MG PO SCH (22:29)
[2022-05-21] MEDS: ENOXAPARIN SOD INJ 120 MG/0.8 ML SYR SC SCH (22:29)
[2022-05-22] VITALS (8 sets, daily range): BP systolic 95–117; BP diastolic 54–66
[2022-05-22] MEDS: FUROSEMIDE 40 MG TAB PO SCH ×3 (06:00→21:24)
[2022-05-22] MEDS: PANTOPRAZOLE SOD 40 MG TABEC PO SCH (07:55)
[2022-05-22] MEDS: FERROUS SULFATE 325 MG TAB PO SCH (08:00)
[2022-05-22] MEDS: METOPROLOL SUCCINATE 25 MG TAB XL PO SCH (08:00)
[2022-05-22] MEDS: FLUOXETINE HCL 20 MG CAP PO SCH (08:00)
[2022-05-22] MEDS: ALLOPURINOL 100 MG TAB PO SCH (08:00)
[2022-05-22] MEDS: ASCORBIC ACID 500 MG TAB PO SCH ×2 (08:00→16:49)
[2022-05-22] MEDS: FOLIC ACID 1 MG TAB PO SCH (08:00)
[2022-05-22] MEDS: LORATADINE 10 MG TAB PO SCH (08:00)
[2022-05-22 08:05] LABS: BASOPHILS # (AUTO) 0.1 (0.0-0.1); BASOPHILS % 1.2 % (0.0-1.0); EOSINOPHILS # (AUTO) 0.8 (0.0-0.4); EOSINOPHILS % 9.5 % (0.0-6.0); HEMOGLOBIN 8.8 g/dL (12.0-16.0); LYMPHOCYTES # (AUTO) 1.5 (1.0-3.2); LYMPHOCYTES % 17.7 % (18.0-39.1); MEAN CORPUSCULAR HEMOGLOBIN 26.6 pg (28-32); MEAN CORPUSCULAR HGB CONC 29.3 g/dL (31-35); MEAN CORPUSCULAR VOLUME 90.6 fL (81-99); MONOCYTES # (AUTO) 0.6 (0.2-0.8); MONOCYTES % 6.7 % (4.4-11.3); NEUTROPHILS # (AUTO) 5.3 (2.1-6.9); NEUTROPHILS % 64.4 % (38.7-80.0); PLATELET COUNT 463 x10e3/uL (140-360); RED BLOOD COUNT 3.31 x10e6/uL (3.6-5.1)
[2022-05-22] MEDS: ENOXAPARIN SOD INJ 120 MG/0.8 ML SYR SC SCH (08:54)
[2022-05-22 09:36] LABS: ANISOCYTOSIS MODERATE; HYPOCHROMASIA SLIGHT; PLATELET ESTIMATE ADEQUATE; PLATELET MORPHOLOGY COMMENT NORMAL; RBC MORPHOLOGY COMMENT ABNORMAL
[2022-05-22] MEDS: HYDROCODONE/APAP 5MG-325MG TAB PO PRN ×2 (11:35→20:13)
[2022-05-22] MEDS: MONTELUKAST SODIUM 10 MG TAB PO SCH (20:02)
[2022-05-22] MEDS: CRESTOR 10MG PO SCH (20:02)
[2022-05-22] MEDS: SENNA-S TABLET PO SCH ×2 (20:02→20:05)
[2022-05-22] MEDS: QUETIAPINE FUMARATE 25 MG TAB PO SCH (20:03)
[2022-05-23] VITALS (8 sets, daily range): BP systolic 92–123; BP diastolic 57–68
[2022-05-23] MEDS: FUROSEMIDE 40 MG TAB PO SCH ×3 (05:32→21:09)
[2022-05-23] MEDS: FERROUS SULFATE 325 MG TAB PO SCH (09:53)
[2022-05-23] MEDS: PANTOPRAZOLE SOD 40 MG TABEC PO SCH (09:53)
[2022-05-23] MEDS: ASCORBIC ACID 500 MG TAB PO SCH ×2 (09:54→17:32)
[2022-05-23] MEDS: FLUOXETINE HCL 20 MG CAP PO SCH (09:54)
[2022-05-23] MEDS: ALLOPURINOL 100 MG TAB PO SCH (09:54)
[2022-05-23] MEDS: FOLIC ACID 1 MG TAB PO SCH (09:55)
[2022-05-23] MEDS: LORATADINE 10 MG TAB PO SCH (09:56)
[2022-05-23] MEDS: METOPROLOL SUCCINATE 25 MG TAB XL PO SCH (12:01)
[2022-05-23] MEDS: HYDROCODONE/APAP 5MG-325MG TAB PO PRN ×2 (13:42→21:38)
[2022-05-23] MEDS ORDERED: APIXABAN 5 MG TABLET PO SCH (17:00)
[2022-05-23 17:01] LABS: INR 1.08; PARTIAL THROMBOPLASTIN TIME 30.4 seconds (23.8-35.5)
[2022-05-23] MEDS: SENNA-S TABLET PO SCH (21:00)
[2022-05-23] MEDS: MONTELUKAST SODIUM 10 MG TAB PO SCH (21:38)
[2022-05-23] MEDS: QUETIAPINE FUMARATE 25 MG TAB PO SCH (21:38)
[2022-05-23] MEDS: CRESTOR 10MG PO SCH (21:38)
[2022-05-24] VITALS: BP 107/67
[2022-05-24 04:00] VITALS: BP 111/62
[2022-05-24] MEDS: FUROSEMIDE 40 MG TAB PO SCH ×3 (06:00→15:21)
[2022-05-24 06:24] LABS: BASOPHILS # (AUTO) 0.1 (0.0-0.1); BASOPHILS % 0.6 % (0.0-1.0); EOSINOPHILS # (AUTO) 0.5 (0.0-0.4); EOSINOPHILS % 6.1 % (0.0-6.0); HEMATOCRIT 29.5 % (34.2-44.1); HEMOGLOBIN 8.6 g/dL (12.0-16.0); LYMPHOCYTES # (AUTO) 1.5 (1.0-3.2); LYMPHOCYTES % 18.3 % (18.0-39.1); MEAN CORPUSCULAR HEMOGLOBIN 26.5 pg (28-32); MEAN CORPUSCULAR HGB CONC 29.2 g/dL (31-35); MEAN CORPUSCULAR VOLUME 90.8 fL (81-99); MONOCYTES # (AUTO) 0.6 (0.2-0.8); MONOCYTES % 7.1 % (4.4-11.3); NEUTROPHILS # (AUTO) 5.7 (2.1-6.9); NEUTROPHILS % 67.7 % (38.7-80.0); PLATELET COUNT 427 x10e3/uL (140-360); RED BLOOD COUNT 3.25 x10e6/uL (3.6-5.1); RED CELL DISTRIBUTION WIDTH 19.2 % (11.7-14.4)
[2022-05-24 06:28] LABS: ALBUMIN 1.9 g/dL (3.5-5.0); ALBUMIN/GLOBULIN RATIO 0.5 (0.8-2.0); ALKALINE PHOSPHATASE 66 IU/L (40-150); ANION GAP 18.7 mmol/L (8-16); BLOOD UREA NITROGEN 27 mg/dL (7-26); BUN/CREATININE RATIO 21 (6-25); CARBON DIOXIDE 17 mmol/L (22-29); CHLORIDE 110 mmol/L (98-107); CREATININE, SERUM 1.29 mg/dL (0.57-1.11); GLUCOSE 83 mg/dL (74-118); POTASSIUM 3.7 mmol/L (3.5-5.1); SODIUM 142 mmol/L (136-145)
[2022-05-24 06:30] LABS: ALANINE AMINOTRANSFERASE < 6 IU/L (0-55)
[2022-05-24] MEDS: PANTOPRAZOLE SOD 40 MG TABEC PO SCH (07:30)
[2022-05-24 07:56] VITALS: BP 113/67
[2022-05-24 08:33] LABS: ANISOCYTOSIS MODERATE; PLATELET ESTIMATE ADEQUATE; PLATELET MORPHOLOGY COMMENT NORMAL; RBC MORPHOLOGY COMMENT ABNORMAL
[2022-05-24 08:34] LABS: HYPOCHROMASIA SLIGHT
[2022-05-24] MEDS: ASCORBIC ACID 500 MG TAB PO SCH (09:00)
[2022-05-24] MEDS: METOPROLOL SUCCINATE 25 MG TAB XL PO SCH (09:00)
[2022-05-24 11:30] VITALS: BP 109/71
[2022-05-24] MEDS: LORATADINE 10 MG TAB PO SCH (13:16)
[2022-05-24] MEDS: HYDROXYZINE HCL 25 MG TAB PO PRN (13:16)
[2022-05-24] MEDS: FERROUS SULFATE 325 MG TAB PO SCH (13:16)
[2022-05-24] MEDS: FLUOXETINE HCL 20 MG CAP PO SCH (13:17)
[2022-05-24] MEDS: ALLOPURINOL 100 MG TAB PO SCH (13:17)
[2022-05-24] MEDS: FOLIC ACID 1 MG TAB PO SCH (13:17)
[2022-05-24 16:19] VITALS: BP 135/74
[2022-05-24] MEDS ORDERED: SODIUM BICARBONATE 650 MG TAB PO SCH (17:00)
[2022-05-24] MEDS ORDERED: ENOXAPARIN SOD INJ 120 MG/0.8 ML SYR SC SCH (21:00)
== END 2022-05-24 17:50 | disposition home or self-care (01) | DRG 175 ==
LOC: ER 23:52 → ERHOLD 05-09 01:52 → MED/SURG 05-09 03:31 → ICU 05-09 20:45 → MED/SURG 05-16 20:35 → MED/SURG3 05-18 14:32
PROVIDERS: ADMIT Internal Medicine; ATTEND Internal Medicine
PROC: 5A0935A Assistance with Respiratory Ventilation, Less than 24 Consecutive Hours, High Flow/Velocity Cannula (ICD-10-PCS; 2022-05-09)
PROC: 02HV33Z Insertion of Infusion Device into Superior Vena Cava, Percutaneous Approach (ICD-10-PCS; principal; 2022-05-10)
PROC: 02H633Z Insertion of Infusion Device into Right Atrium, Percutaneous Approach (ICD-10-PCS; 2022-05-10)
DX: I26.99 Other pulmonary embolism without acute cor pulmonale (principal); I50.33 Acute on chronic diastolic (congestive) heart failure; J69.0 Pneumonitis due to inhalation of food and vomit; J96.01 Acute respiratory failure with hypoxia; N17.9 Acute kidney failure, unspecified; I69.954 Hemiplegia and hemiparesis following unspecified cerebrovascular disease affecting left non-dominant side; Z68.43 Body mass index [BMI] 50.0-59.9, adult; T86.99 Other complications of unspecified transplanted organ and tissue; L03.116 Cellulitis of left lower limb; L03.115 Cellulitis of right lower limb; N13.6 Pyonephrosis; E87.3 Alkalosis; C85.18 Unspecified B-cell lymphoma, lymph nodes of multiple sites; D68.9 Coagulation defect, unspecified; I13.0 Hypertensive heart and chronic kidney disease with heart failure and stage 1 through stage 4 chronic kidney disease, or unspecified chronic kidney disease; F32.A Depression, unspecified; E78.5 Hyperlipidemia, unspecified; Z86.711 Personal history of pulmonary embolism; Z79.01 Long term (current) use of anticoagulants; E78.00 Pure hypercholesterolemia, unspecified; E66.01 Morbid (severe) obesity due to excess calories; Z88.6 Allergy status to analgesic agent; E11.69 Type 2 diabetes mellitus with other specified complication; Z20.822 Contact with and (suspected) exposure to COVID-19; D50.9 Iron deficiency anemia, unspecified; R62.7 Adult failure to thrive; R31.9 Hematuria, unspecified; B96.20 Unspecified Escherichia coli [E. coli] as the cause of diseases classified elsewhere; E87.6 Hypokalemia; E83.42 Hypomagnesemia; T50.1X5A Adverse effect of loop [high-ceiling] diuretics, initial encounter; D07.0 Carcinoma in situ of endometrium; R16.0 Hepatomegaly, not elsewhere classified; N28.1 Cyst of kidney, acquired; R91.8 Other nonspecific abnormal finding of lung field; D63.8 Anemia in other chronic diseases classified elsewhere; K21.9 Gastro-esophageal reflux disease without esophagitis; D75.839 Thrombocytosis, unspecified; R04.0 Epistaxis; Z53.29 Procedure and treatment not carried out because of patient's decision for other reasons; N13.9 Obstructive and reflux uropathy, unspecified; Z98.2 Presence of cerebrospinal fluid drainage device; N18.30 Chronic kidney disease, stage 3 unspecified; I48.91 Unspecified atrial fibrillation
CPT/HCPCS: 36415; 36556; 71045; 71260; 74176; 74470; 76770; 76937; 77001; 80048; 80053; 81001; 82105; 82378; 82550; 82553; 82570; 82607; 82728; 82746; 83010; 83540; 83690; 83735; 83880; 84100; 84156; 84466; 84484; 84550; 85014; 85018; 85025; 85045; 85379; 85610; 85730; 86301; 86304; 87086; 87186; 87400; 87420; 93005; 93306; 93970; 94640; 94799; 99251; 99284; C1769; J1170; J1644; J1650; J1940; J2001; J2270; J2405; J2543; J3410; J3475; J7040; J7050; Q9967